=== PATIENT | female | born 1995 | race Caucasian/White ===

== ENCOUNTER 2017-10-29 23:12 | Emergency (ER) | payer MEDICAID ==
[~2017-10-29] VITALS: Ht 167.6 cm; Wt 51.2 kg
[2017-10-29 23:32] VITALS: Ht 167.6 cm; Wt 51.2 kg
[2017-10-30 01:57] VITALS: BP 123/84
== END 2017-10-30 01:57 | disposition home or self-care (01) ==
LOC: ED 23:12
DX: B37.3 Candidiasis of vulva and vagina (principal); J02.9 Acute pharyngitis, unspecified